=== PATIENT | male | born 1930 | race Caucasian/White ===

== ENCOUNTER 2021-02-03 15:21 | Inpatient (IN) | payer OTHER ==
[~2021-02-03] VITALS: Ht 180.3 cm; Wt 91.2 kg
[2021-02-03 15:31] VITALS: BP 118/63
[2021-02-03 15:51] LABS: HEMATOCRIT 33.1 % (42.0-52.0); HEMOGLOBIN 10.7 gm/dL (14.0-18.0); MCH 30.4 pg (26.0-34.0); MCHC 32.2 g/dL (28.0-37.0); MCV 94.5 fL (80.0-100.0); PLATELET COUNT 243 thou/uL (150-400); RDW 16.9 % (10.5-14.5); WBC 14.3 thou/uL (4.0-11.0)
[2021-02-03 16:00] LABS: ANION GAP 9 mmol/L (7-16); BUN 32 mg/dL (7-18); CALCIUM 8.1 mg/dL (8.5-10.1); CHLORIDE 103 mmol/L (98-107); CO2 27 mmol/L (21-32); CREATININE 3.6 mg/dL (0.7-1.3); GLUCOSE 132 mg/dL (74-106); SODIUM 139 mmol/L (136-145)
[2021-02-03 16:05] LABS: ALBUMIN 2.1 g/dL (3.4-5.0); SGOT 27 U/L (15-37); SGPT 12 U/L (16-63); TOTAL BILIRUBIN 0.6 mg/dL (0.2-1.0); TOTAL PROTEIN 5.4 g/dL (6.4-8.2)
[2021-02-03 16:06] LABS: SALICYLATE < 2.8 mg/dL (2.8-20.0)
[2021-02-03 16:23] LABS: ABSOLUTE NEUTROPHILS 9.6 thou/uL (1.4-8.2)
[2021-02-03 16:24] LABS: PLATELET ESTIMATE NORMAL
[2021-02-03 16:44] LABS: URINE BLOOD 3+ (Negative); URINE GLUCOSE-RANDOM* TRACE (Negative); URINE KETONES 1+ (Negative); URINE SPECIFIC GRAVITY 1.015 (1.005-1.035)
[2021-02-03 16:45] LABS: URINE CLARITY CLOUDY; URINE COLOR RED; URINE LEUKOCYTES-REFLEX 3+ (Negative); URINE NITRITE-REFLEX POSITIVE (Negative)
[2021-02-03 16:56] LABS: SSA (PROTEIN CONFIRMATORY) NEGATIVE (Negative)
[2021-02-03 16:57] LABS: URINE PROTEIN (DIPSTICK) NEGATIVE (Negative)
[2021-02-03 17:01] LABS: ICTOTEST (BILI CONFIRMATORY) Negative (Negative); URINE BILIRUBIN NEGATIVE (Negative)
[2021-02-03 17:07] LABS: BACTERIA-REFLEX 1-9 Few /HPF (None Seen); CASTS None Seen /LPF (None Seen); CRYSTALS None Seen /LPF (None Seen); MUCUS None Seen strn/LPF (None Seen); SQUAMOUS None Seen /LPF (0-3); URINE RBC >20 Many /HPF (0-2); URINE WBC-REFLEX 0-5 Rare /HPF (0-5)
[2021-02-03 18:52] LABS: INR 1.3; PROTIME 13.9 Seconds (9.3-11.4)
[2021-02-03 20:45] VITALS: BP 116/56
[2021-02-03] MEDS ORDERED: WARFARIN SODIUM2 MG PO (20:47)
[2021-02-03] MEDS ORDERED: PIPERACIL-TA3.375 G1 IV (20:47)
[2021-02-03] MEDS ORDERED: MAGNESIUM OXID400 M2 PO (20:48)
[2021-02-03] MEDS ORDERED: FLOMAX0.4 MG PO (20:48)
[2021-02-03] MEDS ORDERED: CARVEDILOL3.125 MG PO (20:48)
[2021-02-03] MEDS ORDERED: FUROSEMIDE 40 M40 MG PO (20:48)
[2021-02-03] MEDS ORDERED: TYLENOL325 M1 PO (20:49)
[2021-02-03] MEDS ORDERED: ALLOPURINOL 10100 M1 PO (20:49)
[2021-02-03 21:20] VITALS: BP 144/78
--- NOTE | 2021-02-03 21:47 | NUR ---
left message with IV team that pt arrived from a facility with a single lumen picc line in rt upper arm.
--- NOTE | 2021-02-04 | NUR ---
PT ADMITTED THROUGH ED FROM [facility]. PER CORRECTION REPORT PT IS TO TRANSFER TO [facility] TO BE CLOSER TO HIS SON/DPOA. PT PRESENTED FOR STATEMENTS RELATED TO WANTING TO . PT DENIES THESE STATEMENTS SUICIDAL STATING HE JUST WANTS TO BE LEFT ALONE TO BE 89YRS OLD. PT IS ON 1:1. PT PRESENTED WITH HX OF PE AND ON ELIQUIS AND UTI ON ZOSYN. PT HAS A NEPHROSTOMY TUBE AND UROSTOMY TUBE BOTH WITH BLOOD TINGED DRAINAGE. 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 PT IS ABLE TO ASSIST WITH REPOSITIONING IN BED. PT HAS GLASSES AND IS EXTREMELY UNALAKLEET, WRITING OUT COMMUNICATION IS HIS PREFERRED METHOD OF COMMUNICATING. IVF INTACT. O2 PER NC, PT IS OXYGEN DEPENDENT. PT STATED HE NO LONGER TRUSTS HEALTHCARE FACILITIES OR NURSING HOMES HE STATED HE HAS BEEN LIED TO OFTEN. BED ALARM ON.
[2021-02-04] MEDS ORDERED: LEVOTHYROXINE125 MC1 PO (01:52)
--- NOTE | 2021-02-04 02:50 | NUR ---
ONCE IVF COMPLETE TO BE DCD PER PROVIDER.
--- NOTE | 2021-02-04 04:14 | NUR ---
PROVIDER WANTED IVF DCD AFTER THIS BAG UNLESS CHANGES WITH LUNG SOUNDS DUE TO HX OF CHF. LUNGS WITH WHEEZE DCD IVF.
[2021-02-04 05:35] LABS: INR 1.3; PROTIME 13.5 Seconds (9.3-11.4)
[2021-02-04 05:36] LABS: HEMATOCRIT 30.8 % (42.0-52.0); MCH 30.8 pg (26.0-34.0); MCHC 32.4 g/dL (28.0-37.0); MCV 95.2 fL (80.0-100.0); RBC 3.24 mil/uL (4.50-6.00); RDW 17.3 % (10.5-14.5); WBC 11.4 thou/uL (4.0-11.0)
[2021-02-04 05:49] LABS: CALCIUM 7.8 mg/dL (8.5-10.1); CREATININE 3.7 mg/dL (0.7-1.3)
[2021-02-04 05:59] LABS: POTASSIUM 2.9 mmol/L (3.5-5.1)
[2021-02-04 07:30] VITALS: BP 119/73
--- NOTE | 2021-02-04 09:15 | NUR ---
ASSUMED PT CARE AT SHIFT CHANGE. PT IS EXTREMELY KALSKAG, BUT CAN READ LIPS AND WRITTEN WORDS. PT STATES THAT HE "JUST WANTS TO BE LEFT ALONE, I AM 89 YEARS OLD, JUST LET ME BE." PT IS ALERT & ORIENTED X4.
--- NOTE | 2021-02-04 09:26 | NUR ---
ST WAS UNABLE TO COMPLETE ANY FORMALIZED TESTING OF COGNITIVE SKILLS DUE TO Pt REFUSAL WITH STRUCTURED TASKS. THROUGH INFORMAL QUESTIONING AND CLINICAL OBSERVATION, AT LEAST MILD TO MODERATE DEFICITS ARE SUSPECTED. RECOMMEND A RE-EVALUATION ONCE THE PATIENT'S MEDICAL AND EMOTIONAL NEEDS ARE MET. UNTIL THEN, THE PATIENT CANNOT BE CONSIDERED A RELIABLE SOURCE FOR DECISION MAKING.
--- NOTE | 2021-02-04 10:49 | NUR ---
[facility] PLACED CALL TO THIS RN. STATES PT IS FROM [place], [place] AND DESIRED TO GO TO [facility], BUT THE FACILITY COULD NOT TAKE CARE OF HIS IV ABX SO HE ENDED UP AT [facility]. PT FAMILY IS DESCRIBED NEEDING "TLC" PT/FAMILY DID NOT HANDLE THE PASSING OF PT (EXACT TIME UNKNOWN) AND ARE STILL GRIEVING. THIS RN LATER TALKED TO PT SON. SON IS REQUESTING THAT PT GET FINISHED WITH IV ABX IN HOSPITAL SO HE CAN GO TO FACILITY CLOSER TO HOME. PT SON STATES THAT "WHEN HE GETS SOMETHING IN HIS HEAD, HE IS PRETTY HARD TO CHANGE HIS MIND" HE ALSO STATES PT MAY HAVE HAD PERSONALITY CLASH WITH PEOPLE IN [place]. PT SON BELIEVES GETTING HIME CLOSER TO HOME MAY CHANGE HIS OUTLOOK. PT SON STATES HE CANNOT TAKE CARE OF HIS DAD AT HOME.
--- NOTE | 2021-02-04 11:09 | NUR ---
[facility] CONSULT; ASSESSMENT OF THE COCCYX REVELS A SMALL SKIN TEAR APPROX. 1.0 X 0.5 X 0.1 SCANT SEROSANGINOUS DRAINAGE. PINK WOUND BED. THE PATIENT HAS A CAREGIVER IN THE ROOM AT ALL TIMES. NO S/S OF INFECTION. RECOMMENDATION; 1-ZGUARD TO THE WOUND BED 2-BARRIER CREAM TO BUTTOCKS AND SACRUM 3-ADD A LOW AIR LOSS BED PUMP DISCUSSED WITH RN
--- NOTE | 2021-02-04 14:29 | NUR ---
PT BACK FROM IR. NEW SITE VISUALIZED ON R FLANK. INTACT, NO REDNESS OR DRAINAGE. [facility] PROVIDED FOR SMALL AMOUNT BM. VITALS STABLE
--- NOTE | 2021-02-04 15:46 | NUR ---
Patient admits from [facility] to [facility] with SI. Patient hard of hearing but is write things he understands. Sp with Dr Mccord no plan to admit to [facility]. Patient reports ok to call son. Left message on sons voicemail. sp with Deb in admissions. Patient admitted to [facility] were patient had been at [facility] and had nephrosotmy tube placed. Patient initally from [facility]. Plan was to admit to [facility] which is closer to home. This facility could not accomate the need for IV antibiotics 14 days q6 for UTI. Plan once IV antibiotics to be completed then transfer to [facility]. 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 OG accepting of patients return once stable and notation from psychiatry that patient is not suicidal. casemgt following.
--- NOTE | 2021-02-04 19:27 | NUR ---
PT RESTING AND SLEEPING IN BED. PT AROUSED BY TOUCH. PT HAD SEDATION WITH NEPHROSTOMY PLACEMENT TODAY. IV MEDS RUNNING. NEPHROSTOMY AND UROSTOMY TUBING INTACT WITH BLOODY DRAINAGE CONTINUED. BLE EDEMA. BS DECREASED. O2 PER NC. PT REMAINS ON 1:1 FOR SI STATEMENTS MADE YESTERDAY. PT IS EXTREMELY ZUNI, COMMUNICATION WITH WRITING STATEMENTS.
--- NOTE | 2021-02-04 19:29 | NUR ---
REPORT GIVEN TO CAP SEWER. PT IS SLEEPY, BUT EASILY AROUSED. PT REFUSING TO WAKE UP FOR DRINK/DINNER AT THIS TIME.
[2021-02-04 19:52] VITALS: BP 87/48
--- NOTE | 2021-02-04 21:45 | NUR ---
PT HAS AWAKENED AND IS WATCHING TV AND TALKING WITH SITTER. PTS NEW NEPHROSOTMY TUBE SITE IS DRY AND INTACT.
[2021-02-04 23:59] VITALS: BP 98/49
[2021-02-05 03:08] VITALS: BP 109/58
--- NOTE | 2021-02-05 07:15 | NUR ---
Took over care of pt. around 0330. Sitter at bedside. Repositioned this am. incontinent of med soft bm. Z guard applied to buttocks.No suicidal intention. Verbalized he wants to go home today.
--- NOTE | 2021-02-05 07:49 | NUR ---
OT ATTEMPTS EVALUATION AT 0745. PT. HAS 1:1 SITTER, NURSING REPORTS PT. IS EASILY AGITATED. PT ADAMENTLY REFUSES OT EVALUATION/SERVICES. RAISES VOICE AND STATES "DO NOT COME BACK IN HERE". PLEASE WRITE NEW ORDERS IF PT. STATES HE WILL ALLOW EVALUATION.
--- NOTE | 2021-02-05 09:21 | NUR ---
Nutrition: pt asssessed due to wound risk which is skin tears on coccyx. Pt admit with ARABELLA, UTI, S.I. PMH: ureteral calculus, S/P nephrostomy tube/stent, CHF, HTN, cystectomy/urostomy. Pscyh eval due to pt comments regarding wanting to . Hypokalemia-replacing. Pt extremely LOWER KALSKAG, used pen/paper to communicate. Reports UBW 200#. Current 170#. Pt unaware of any weight changes so possible error? Very cantankerous and irritated with most of my questions. Ate 100% of breakfast this am and pt reports good appetite "if they give me food". No desire for supplements just wants to go home. Low nutrition risk.
--- NOTE | 2021-02-05 09:59 | NUR ---
WOUND CARE F/U; THE PATIENT IS ANGRY TODAY. IT TOOK SOME COLLABERATION FOR HIM TO AGREE TO LET ME ASSESS THE WOUND. THE WOUND IS MINOR AND STABLE. IT IS A SMALL SKIN TEAR LIKELY RELATED TO FRICTION. NO S/S OF INFECTION. RECCOMMENDATIONS; CONTINUE CURRENT TREATMENT DISCUSSED WITH RN.
--- NOTE | 2021-02-05 12:50 | NUR ---
VINCENT reviewed chart and spoke with nursing and attending physician. Pt is progressing towards goals for discharge. 1:1 sitter discontinued earlier today. Pt may be ready for discharge over the weekend. VINCENT faxed psych eval and updates to [facility] for review. Pt will discharge on PO abx, and may be able to d/c to [facility]. VINCENT faxed referral to [facility] for review and spoke with Barbara in admissions. Clinical team to review referral. VINCENT left voice message for pt's son Chaim ([phone]) to provide update. VINCENT is following to assist as needed with discharge planning. [facility]--
[2021-02-05 16:13] VITALS: BP 100/62
--- NOTE | 2021-02-05 17:52 | NUR ---
DISCONTINUED 1:1 SITTER THIS AM PER PHYSICIAN. PATIENT HARD OF HEARING. COMMUNICATING BY WRITING PER PATIENT REQUEST. SPOKE WITH SON ADDI THIS AFTERNOON AND GAVE PATIENT UPDATE. PATIENT DENIES ANY PAIN OR DISCOMFORT. JUST READY TO LEAVE THE HOSPITAL AND SEE HIS SON. REPLACING k+ PER DR. CESPEDES ORDERS. MONITORING.
[2021-02-05 21:15] VITALS: BP 115/56
[2021-02-06 03:18] VITALS: BP 106/64
[2021-02-06 03:53] LABS: HEMATOCRIT 32.2 % (42.0-52.0); HEMOGLOBIN 10.3 gm/dL (14.0-18.0); MCH 31.1 pg (26.0-34.0); MCHC 32.1 g/dL (28.0-37.0); MCV 96.8 fL (80.0-100.0); RBC 3.33 mil/uL (4.50-6.00); WBC 9.3 thou/uL (4.0-11.0)
[2021-02-06 04:15] LABS: CALCIUM 7.9 mg/dL (8.5-10.1); MAGNESIUM 1.6 mg/dL (1.8-2.4); POTASSIUM 4.3 mmol/L (3.5-5.1)
[2021-02-06 04:16] LABS: CREATININE 2.5 mg/dL (0.7-1.3)
[2021-02-06 07:35] VITALS: BP 133/60
--- NOTE | 2021-02-06 07:41 | NUR ---
VSS OVERNIGHT. PT IS VERY BLACKFEET, BUT A PLEASURE TO BE AROUND AND PT IS IN GOOD SPIRITS. POC WITH IVF AND IVPB. PT IS BEDBOUND AND USING Z GUARD TO COCCYX AREA. PT CAN USE CALL LIGHT TO CALL FOR NEEDS WHEN HE DOES NOT YELL OUT TO GET YOUR ATTENTION. HOURLY ROUNDING.
[2021-02-06 11:18] VITALS: BP 119/68
[2021-02-06 15:18] VITALS: BP 110/55
--- NOTE | 2021-02-06 18:45 | NUR ---
PT HAS RESTED IN ROOM THROUGH THE DAY. HE IS ALERT ORIENTED X4. HAD A BM TODAY. PLEASANT WITH CARES. WILL CONT WITH PLAN OF CARE. .
[2021-02-06 19:34] VITALS: BP 113/61
[2021-02-07 04:51] VITALS: BP 120/65
[2021-02-07 07:22] VITALS: BP 99/59
--- NOTE | 2021-02-07 07:57 | NUR ---
CALLED PT'S SON FOR HIM DUE TO [place]. LEFT A MESSAGE ON PT VOICE MAIL. PT CONCERN IS THAT HIS SON WONT VISIT. FOLLOWING POC WITH IVF/IVPB. PT REQUEST COFFEE REQUENTLY.
[2021-02-07 11:00] VITALS: BP 105/53
[2021-02-07 15:40] VITALS: BP 113/53
[2021-02-07 20:03] VITALS: BP 114/57
--- NOTE | 2021-02-07 20:08 | NUR ---
NOTIFIED SON THAT HE WILL LIKE TO GO HOME. SON EXPLAINED TO NURSE THAT IT WILL BE DIFFICULT FOR HIM TO TAKE CARE OF HIS FATHER SON'S IS ALSO SICK. HE STRONGLY PREFERS FATHER TO BE IN A FACULTY [facility] CARE FACILITY. PATIENT KEPT REPEATING TO SON TO TAKE HIM HOME. HE IS NOW SLEEPING. NO COMPLAIN OF PAIN. WILL CONT WITH PLAN OF CARE.
[2021-02-08 04:09] VITALS: BP 141/63
[2021-02-08 06:12] LABS: HEMATOCRIT 29.7 % (42.0-52.0); HEMOGLOBIN 9.5 gm/dL (14.0-18.0); MCH 30.7 pg (26.0-34.0); RBC 3.09 mil/uL (4.50-6.00); WBC 8.2 thou/uL (4.0-11.0)
[2021-02-08 06:15] LABS: CALCIUM 7.7 mg/dL (8.5-10.1); CREATININE 2.2 mg/dL (0.7-1.3); POTASSIUM 4.6 mmol/L (3.5-5.1)
[2021-02-08 07:25] VITALS: BP 110/61
--- NOTE | 2021-02-08 07:45 | NUR ---
PROGRESS PT A/O X4 ON BEDREST. HAS 2 NEPHROSTOMY DRAINS AND THEY ARE DRAINING CLEAR YELLOW URINE. IVF'S INFUSING INTO ELLIE SINGLE LUMEN PICC. DENIES PAINHAD A BM ON BEDPAN LARGE SOFT. TAKES PILLS WHOLE ON A REG RENAL DIET ADEQUATE INTAKE. REPOSITIONED Q2HRS, AM LABS DRAWN. PT SLEPT ALL SHIFT TELEMETRY INTACT READING ST/SR. CONTINUE POC.
[2021-02-08 11:10] VITALS: BP 115/71
--- NOTE | 2021-02-08 11:13 | NUR ---
VINCENT reviewed chart and spoke with nursing and attending physician. Pt is progressing towards goals for discharge. Discharge is anticipated for tomorrow. VINCENT faxed updated clinical info and nurses notes to [facility] for review. Spoke with Swathi in admissions at [facility]. Per Swathi, she will discuss with her clinical team to see if they are able to accept pt. The facility on Monday had concerns regarding pt's suicidal comments. Pt has been evaluated and cleared by psych. VINCENT also faxed clinical info to [facility] for review. Pt and family prefer pt return to [facility] or somewhere closer if possible. VINCENT is following to assist as needed with discharge planning.
--- NOTE | 2021-02-08 11:26 | NUR ---
PT CARE TAKEN OVER 0700, PT ALERT AND ORIENTED X4, FORGETFUL AND VERY HARD OF HEARING. PT DENIES ANY PAIN, NAUSEA AND VOMITTING. CONTINUES TO BE ON 2L OF OXYGEN, NO SIGNS OF DISTRESS NOTED. DR. COY ATWOOD AND STATED PT WILL POSSIBLE GET D/C TOMORROW. FALL PRECAUTIONS IN PLACE. WILL COTNINUE TO MONITOR.
--- NOTE | 2021-02-08 13:46 | NUR ---
WOUND CARE F/U; THE SKIN TEAR HAS IMPROVED GREATLY. NO S/S OF INFECTION OR ANY OTHER NEW INJURY. SCANT SEROSANGUNINOUS DRAINAGE. RECOMMENDATIONS; CONTINUE CURRENT POC. DISCUSSED WITH RN/ PIC WAS TAKEN.
[2021-02-08 15:33] VITALS: BP 111/86
[2021-02-09 05:50] VITALS: BP 129/80
[2021-02-09 06:21] LABS: HEMATOCRIT 31.5 % (42.0-52.0); HEMOGLOBIN 10.1 gm/dL (14.0-18.0); MCH 31.1 pg (26.0-34.0); MCV 97.1 fL (80.0-100.0); RBC 3.25 mil/uL (4.50-6.00); RDW 17.5 % (10.5-14.5); WBC 8.7 thou/uL (4.0-11.0)
[2021-02-09 06:40] LABS: CREATININE 2.2 mg/dL (0.7-1.3); MAGNESIUM 1.4 mg/dL (1.8-2.4); POTASSIUM 5.6 mmol/L (3.5-5.1)
[2021-02-09 07:24] VITALS: BP 122/74
--- NOTE | 2021-02-09 07:46 | NUR ---
PT HAD 5 BM'S OVERNIGHT. ZGUARD TO COCCYX AREA PER POC. PT IS VERY DOUGLAS. HOURLY ROUNDING.
[2021-02-09 11:09] VITALS: BP 128/68
--- NOTE | 2021-02-09 11:45 | NUR ---
DISCHARGE NOTE: VINCENT reviewed chart and spoke with nursing and attending physician. Pt is medically stable for discharge to post-acute placement today. VINCENT spoke with Gaby, in admissions at [facility], who state they are able to accept pt today. Wheelchair van from the facility will pick pt up around 1400 this afternoon. VINCENT notified nursing and attending physician. Awaiting finalized discharge orders/summary. VINCENT left voice message for pt's son, Chaim, to provide update and notify of discharge. Chart copy requested. Nursing provided with number to call report. VINCENT updated Deb at [facility]. VINCENT is following to finalize discharge plan.
[2021-02-09] MEDS ORDERED: MIRALAX17 GM PO (12:33)
[2021-02-09] MEDS ORDERED: LEVOFLOXACIN500 MG PO (12:33)
[2021-02-09] MEDS ORDERED: DIFLUCAN100 MG PO (12:33)
== END 2021-02-09 15:48 | DRG 871 ==
LOC: ER 15:21 → 3W 20:09 → EROBS 20:09 → 3W 21:09
PROVIDERS: Nurse Practitioner Family; Physician Assistant; ADMIT Internal Medicine; ATTEND Internal Medicine
PROC: 05HY33Z Insertion of Infusion Device into Upper Vein, Percutaneous Approach (ICD-10-PCS; principal; 2021-02-04)
PROC: 0T763DZ Dilation of Right Ureter with Intraluminal Device, Percutaneous Approach (ICD-10-PCS; 2021-02-05)
PROC: BT1D1ZZ Fluoroscopy of Right Kidney, Ureter and Bladder using Low Osmolar Contrast (ICD-10-PCS; 2021-02-05)
PROC: 0T25X0Z Change Drainage Device in Kidney, External Approach (ICD-10-PCS; 2021-02-05)
DX: A41.9 Sepsis, unspecified organism (principal); G92 Toxic encephalopathy; E43 Unspecified severe protein-calorie malnutrition; N17.0 Acute kidney failure with tubular necrosis; R45.851 Suicidal ideations; I13.0 Hypertensive heart and chronic kidney disease with heart failure and stage 1 through stage 4 chronic kidney disease, or unspecified chronic kidney disease; D68.59 Other primary thrombophilia; N13.6 Pyonephrosis; J96.11 Chronic respiratory failure with hypoxia; R65.20 Severe sepsis without septic shock; I50.9 Heart failure, unspecified; Z20.822 Contact with and (suspected) exposure to COVID-19; E03.9 Hypothyroidism, unspecified; N18.9 Chronic kidney disease, unspecified; N40.1 Benign prostatic hyperplasia with lower urinary tract symptoms; E11.22 Type 2 diabetes mellitus with diabetic chronic kidney disease; E78.5 Hyperlipidemia, unspecified; R53.81 Other malaise; F43.21 Adjustment disorder with depressed mood; R31.0 Gross hematuria; Z86.711 Personal history of pulmonary embolism; Z99.81 Dependence on supplemental oxygen; Z79.01 Long term (current) use of anticoagulants; Z87.442 Personal history of urinary calculi; Z85.51 Personal history of malignant neoplasm of bladder; Z90.49 Acquired absence of other specified parts of digestive tract; Z90.6 Acquired absence of other parts of urinary tract; Z68.28 Body mass index [BMI] 28.0-28.9, adult; Z79.899 Other long term (current) drug therapy
CPT/HCPCS: 10879